=== PATIENT | male | born 1950 ===

== ENCOUNTER 2017-07-21 11:12 | Day surgery (SDC) | payer BC, OTHER ==
--- NOTE | 2017-07-21 11:56 | CP.SDSHP ---
Same Day Surgery H & P - History Proposed Procedure: right ankle ulceration debridment of all nonviable tissue and application of synthetic graft Pre-Op Diagnosis: left ankle chronic ulceration - Allergies Allergies: Allergies No Known Allergies Allergy (Verified 01/26/15 09:50) - {Optional Preform as Required} Integument: WNL - Impression Impression: Pt was seen and examined in SDS. Pt NPO status was confirmed. All pre-op testing and clearance in chart. Pt has exhausted all conservative treatment at this time and is opting for surgical intervention. Pt was explained procedure and post-operative course. All pt's questions were answered to satisfaction. No guarantees were made. Pt understands all risks, benefits and complications of procedure. Pt will follow-up with Dr. Singleton within 1 week of surgery - Date & Time Date: 07/21/17 Time: 11:40 Short Stay Discharge - Short Stay Discharge Admitting Diagnosis/Reason for Visit: L97.303/I87.2/M79.671 Disposition: HOME/ ROUTINE Medications: oxyCODONE/Acetaminophen [Percocet 5/325 mg Tab] 1 tab PO .Q4-6 PRN #20 tab PRN Reason: Pain, Severe (8-10) Referrals: Sujatha Guerrier MD [Primary Care Provider] - Instructions: Oxycodone/Acetaminophen (By mouth) Additional Instructions (Diet, Activity): -Patient in good/stable condition for discharge home -Pt to resume medications per medical reconciliation -Resume regular diet Please keep dressing clean, dry, & intact to surgical site -Use plastic bag over bandage for showering -Wear post op shoe at all times when ambulating -Call clinic if you see signs of infection (redness, swelling, malodor) -Please make an appointment to see Dr. Singleton in office/clinic within 1 week for post-op check Progress Note/Discharge Note with Instructions: - Patient evaluated bedside in recovery s/p surgical procedure. - After surgical procedure patient in NAD - (+) Void, (+) Appetite - Capillary refill time <3s and NVSI intact. - Patient denies complaints at this time - Post operative instructions and plan of care explained to patient at length. - Pt. acknowledges understanding. - Patient stable for DC per podiatric surgery
--- NOTE | 2017-07-21 11:56 | CP.PCM.PN ---
Subjective - Date & Time of Evaluation Date of Evaluation: 07/21/17 Time of Evaluation: 11:40 - Subjective Subjective: Podiatry Pre-operative Evaluation- Dr. Singleton 66 y.o male with PMH of HTN, HLD seen for preoperative evaluation for debridement and synthetic graft application of right leg ulcerations. Patient is seen at bedside and accompanied by his son. Patient reports that he had the ulcerations for over 6 months. He reports that the ulceration started as a small hole and had progressively gotten big. He denies any trauma or injury. He does report swelling to the LE. He reports that the ulceration is extremely painful. He rates the pain as 8/10 and describes the pain as a stabbing pain. Patient has exhausted conservative treatment and now opts for surgical intervention. Patient reports last eating or drinking since midnight last night. He reports a sip of water with his high blood pressure this morning. PMH: HTN, HLD, hypothyroid PSH: neck surgery, left carpal tunnel release, inguinal hernia surgery SH: denies smoking, drinking, or illicit drug use MEDS: see medication list ALL: NKDA FH: mother- breast cancer, father- prostate cancer Objective - Constitutional Appears: Well, Non-toxic, No Acute Distress - Extremities Exam Additional comments: Vasc: DP and PT 2/4 bilaterally, CFT < 3 seconds x10 digits, very mild edema noted to the LE, temperature gradient warm to cool Neuro: gross and protective sensation intact bilaterally Derm: two ulcerations noted to the medial aspect of right ankle; Ulceration #1: measures approximately 2 x 2 x .1 cm with macerated intact edges , wound bed is 60% granular and 40% fibrotic, no odor, no active drainage, no malodor noted; no probe to bone, erythema surrounding periwound, no streaking or cellulitic changes noted, no probe to bone; no clinical signs of infection Superficial Ulceration #2 located inferior to ulceration #1 at the medial malleolus: measures approximately 1 x 1 x .1 cm with macerated intact edges, wound bed is 60% granular and 40% fibrotic, no odor, no active drainage, no malodor noted; no probe to bone, erythema surrounding periwound, no streaking or cellulitic changes noted, no probe to bone, no clinical signs of infection Ortho/Biomechanic examination: severe pain with palpation surrounding ulceration sites; MM is 5/5 in all four compartments: dorsiflexion, plantarflexion, inversion, and eversion without pain. Antalgic gait to right foot present. Patient has decreased ankle joint ROM. Ankle joint dorsiflexion b/ l < 10 degrees with knee extended, L>R. Ankle joint dorsiflexion >10 degrees with the left knee flexed. Ankle joint dorsiflexion <10 degrees with the right knee flexed. STJ ROM is full B/L with 20 degrees inversion and 10 degrees eversion. LLE RCSP is 4 degrees everted with NCSP 0 degrees. RLE RCSP 6 degrees everted with NCSP 0 degrees. ROM of MTJ is normal without pain or crepitus b/l. - Neurological Exam Neurological Exam: Alert, Awake, Oriented x3 - Psychiatric Exam Psychiatric exam: Normal Affect, Normal Mood Assessment and Plan - Assessment and Plan (Free Text) Assessment: 6 y.o male with PMH of HTN, HLD seen for preoperative evaluation for debridement and synthetic graft application of right leg ulcerations. Plan: Pt was seen and examined in SDS Pt NPO status was confirmed All pre-op testing and clearance in chart Pt has exhausted all conservative treatment at this time and is opting for surgical intervention Pt was explained procedure and post-operative course All pt's questions were answered to satisfaction No guarantees were made Pt understands all risks, benefits and complications of procedure Pt will follow-up with Dr. Sinlgeton within 1 week of surgery
[2017-07-21 12:13] VITALS: BMI 25.0
[2017-07-21] MEDS ORDERED: Propofol 10 mg/ml Inj (20 ML) ONE ×2 (12:28→12:45)
[2017-07-21] MEDS ORDERED: Midazolam 2 MG/2 ML VIAL ONE (12:29)
[2017-07-21] MEDS ORDERED: Lactated Ringer's 1,000 ML IV ONE (12:44)
[2017-07-21] MEDS ORDERED: Lidocaine 1% Inj (20ml) IJ ONE (12:55)
[2017-07-21] MEDS ORDERED: Bupivacaine 0.5% 50 ML IJ ONE ×2 (12:55→13:33)
[2017-07-21] MEDS ORDERED: Mineral Oil Light Sterile 25 ml TOP ONE (13:25)
[2017-07-21] MEDS ORDERED: HYDROmorphone 0.5 mg/0.5 ml ISec IVP PRN (13:41)
[2017-07-21] MEDS ORDERED: Oxycodone/Acetaminophen 5/325 mg Tab PO PRN ×2 (13:43)
[2017-07-21] MEDS ORDERED: Lactated Ringer's 1,000 ML IV SCH (13:45)
--- NOTE | 2017-07-21 13:54 | PCM.SURG1 ---
Surgeon's Initial Post Op Note - Surgeon's Notes Surgeon: Dr. Singleton DPM Video Clerk: Dr. Kain GARNETT, Dr. Aj Anesthesia Administered By: Dr. Gaby JULIEN Pre-Operative Diagnosis: right ankle chronic ulcerations Operative Findings: see dictations. materials: 4-0 prolene, graft [place] 28 Paraderm-derma matrix graft 4 x 4 ; injectables: 20 cc of 1:1 1% lidocaine plain and .5% marcaine plain; intraop injectables: 10 cc of .5 % marcaine plain Post-Operative Diagnosis: same Operation Performed: debridment of right ankle ulcerations with application of synthetic graft Specimen/Specimens Removed: none Estimated Blood Loss: EBL {In ML}: 1 Blood Products Given: N/A Drains Used: No Drains Post-Op Condition: Good Date of Surgery/Procedure: 07/21/17 Time of Surgery/Procedure: 12:30
[2017-07-21 15:19] VITALS: RESP 18; O2SAT 97
[2017-07-21 15:58] VITALS: BP 148/78; PULSE 78; TEMP 98
--- NOTE | 2017-07-24 11:40 | OP ---
PROCEDURE DATE: 07/21/2017 PREOPERATIVE DIAGNOSIS: Right ankle chronic ulceration secondary to venous stasis. POSTOPERATIVE DIAGNOSIS: Right ankle chronic ulceration secondary to venous stasis. PROCEDURE PERFORMED: Right ankle chronic ulceration and debridement with application of synthetic graft. SURGEON: Johana Singleton DPM. FORMS DESIGNER: Aren Finnegan DPM, PGY1. ANESTHESIOLOGIST: Dr. Griffin. ANESTHESIA: IV sedation with local. INDICATIONS: The patient is a 66-year-old male with above diagnosis. The patient has two ulcerations to the medial aspect of the right ankle for over 6 months etiology most consistent with venous stasis ulceration. The patient has exhausted all conservative treatments at this time and now opted for surgical intervention. The patient signed the consent after careful explanation of risks, benefits, complications and alternatives for surgical procedure. No guarantees were given nor implied. IV Ancef 2 g were given to the patient prior to surgery. N.p.o. status was confirmed prior to taking to the patient to the OR. PREPARATION: The patient was brought into the operation room and placed on the operating room table in a supine position. Time-out was performed for identification of the correct patient and procedure. After induction of IV sedation, the patient received a total of 20 mL of 1:1 mixture of 0.5% Marcaine plain and 1% lidocaine plain in a local block fashion to the right ankle. Once the local anesthesia was achieved, the right lower extremity was then prepped and draped in a normal sterile manner and the procedure began. No tourniquet was used during the procedure. PROCEDURE IN DETAIL: Attention was directed to the medial aspect of the right ankle where an ulceration was located, measuring approximately 2 x 2 x 0.1 cm with macerated intact wound edges. Wound bed is 60% granular and 40% fibrotic. Using a dermal curette, all nonviable fibrotic tissue and necrotic tissue was excisionally debrided from the wound base until healthy bleeding tissue is noted. Using a #15 blade, hatchet strike sheppard were made to the wound base. Attention was then directed to the medial aspect of the right ankle where another ulceration was noted more inferior to the debrided ulceration. The ulceration is approximately 1 x 1 x 0.1 cm with macerated intact wound edges. The wound bed is 60% granular and 40% fibrotic. Using a dermal curette, all nonviable fibrotic tissue and necrotic tissue was excisionally debrided from the wound base until healthy bleeding tissue was exposed. Using a #15 blade, hatchet strike sheppard were made to the wound base. Then the ulcerations were flushed with copious amounts of saline solution with a bulb syringe. The graft was prep and soaked in saline solution to hydrate for 3 minutes. Next, using a pickup, the graft was placed over the more superior ulceration and 4-0 Prolene was used to secure that in place using a simple suture technique. Using a pickup, another graft was placed over the second ulceration and a 4-0 Prolene was used to secure the graft in place using a simple suture technique. The graft was oriented with the basement membrane facing up and notch on the graft at the upper left hand corner. Next, surgical sites were dressed with gauze soaked in mineral oil, next layered by dry gauze, then layered by mineral oil soaked gauze and finally layered with a dry gauze with Kerlix. The entire lower extremity was dressed with Kerlix and Coban for compression. POSTOPERATIVE CONDITION: The patient tolerated the anesthesia and procedure well and was escorted to the recovery room with vital signs stable and neurovascular status intact to the right lower extremity. The patient can weight bear as tolerated with surgical shoe. The patient is instructed to keep the dressing clean, dry and intact and do not get wet. The patient will follow with Dr. Singleton in the office within one week. Aren Finnegan DPM Johana Singleton DPM JACOB
== END 2017-07-21 16:35 | disposition home or self-care (01) ==
LOC: H.OPSURG 11:12
PROVIDERS: ATTEND Podiatrist Foot & Ankle Surgery
DX: M79.671 Pain in right foot (principal); I87.2 Venous insufficiency (chronic) (peripheral); L97.30 Non-pressure chronic ulcer of unspecified ankle; E78.5 Hyperlipidemia, unspecified; I10 Essential (primary) hypertension; E03.9 Hypothyroidism, unspecified
CPT/HCPCS: 15275; J0690; J2250; J2704; J3010; J7120